=== PATIENT | female | born 1990 | race Caucasian/White ===

== ENCOUNTER 2024-12-15 10:51 | Emergency (ER) | payer BC, OTHER, SELFPAY ==
[2024-12-15 10:54] VITALS: BP 181/110
--- NOTE | 2024-12-15 11:53 | ED.GENMED ---
History of Present Illness
General
Chief Complaint: Abdominal Symptoms
Source: patient
Exam Limitations: none
Time Seen by Provider: 12/15/24 11:29
History of Present Illness
History of Present Illness:
34yo female currently 6 weeks by LMP presenting for evaluation of vomiting and diarrhea x 3 days. Last episode of diarrhea was last night and she had 2 episodes of vomiting so far today. She denies any suspicious food intake or sick
contacts. She also reports intermittent episodes of lightheadedness but denies any loss of consciousness. She is actually feeling better today. She called her OB and was advised to go to the ED for evaluation. Patient has not seen OB yet this
and is scheduled for her initial appointment in 2 weeks. She denies any pelvic/abdominal pain or vaginal bleeding. She did not have any issues with vomiting during her first . She has Zofran at home but has not used this
because she was unsure if this was safe.
Past History
Past History
ED Past Medical History: Arrthythmia (SVT)
ED Past Surgical History: Cholecystectomy and Tonsilectomy
Social History
Tobacco: Smoker
Alcohol: Occasional
Drug: None
Personal: Single
Living: with family
Employment: Employed
Family History
Family History: Negative Early CAD (No personal history or family history of aortic disease or pulmonary embolism or DVT)
Phy Exam
General Physical Exam
General Presentation: well appearing and no apparent distress
General Skin: warm and dry
General Habitus: normal
General Mental: alert
ENT Exam
ENT Exam: normocephalic
Cardiovascular Exam
Cardiovascular Exam: regular rate/rhythm
Pulmonary Exam
Pulmonary Exam: lungs clear, no respiratory distress, no rales, no crackles, no rhonchi and no wheezing
Gastrointestinal Exam
Gastrointestinal Exam: non tender, soft and non distended
Neurological Exam
Neurological Exam: alert
Kendra Coma Scale
Eye Opening: Spontaneous
Verbal Response: Oriented
Motor Response: Obeys Commands
GCS Total Score: 15
Skin Exam
Skin Exam: normal color and warm/dry
Psychiatric Exam
Psychiatric Exam: normal mood/affect
Course
Orders/Labs/Results
Orders:
Orders
12/15/24 11:52
0.9% Sodium Chloride 1000 ml [Nss] 1,000 ml IV BOLUS
12/15/24 12:17
Beta HCG Quantitative Urgent
Is this a screen?: No
Complete Blood Count/With Diff Urgent
Comprehensive Metabolic Panel Urgent
Magnesium Urgent
Abnormal Lab Results
12/15/24
12:17
WBC 17.1 H 10^3/uL
(4.8-10.8)
MCHC 32.7 L g/dL
(33.0-37.0)
Abs Immat Gran (auto) 0.1 H 10^3/uL
(0-0.05)
Absolute Neuts (auto) 13.2 H 10^3/uL
(1.4-6.5)
Absolute Monos (auto) 0.9 H 10^3/uL
(0.1-0.6)
Neutrophils % 77.5 H %
(42.2-75.2)
Lymphocytes % 15.8 L %
(20.5-51.1)
Chloride 109 H mmol/L
(98-107)
Carbon Dioxide 20 L mmol/L
(22-30)
BUN 5 L mg/dl
(7-17)
12/15/24 12:17
12/15/24 12:17
Vital Signs
Initial and Last Documented VS:
Initial Vital Signs
Temp Pulse Resp BP Pulse Ox
98.5 F 95 18 181/110 99
12/15/24 10:54 12/15/24 10:54 12/15/24 10:54 12/15/24 10:54 12/15/24 10:54
Last Documented Vital Signs
Temp Pulse Resp BP Pulse Ox
98.7 F 78 13 114/59 97
12/15/24 12:00 12/15/24 15:30 12/15/24 15:00 12/15/24 15:00 12/15/24 15:30
MDM/Problems Addressed
Differential Diagnosis Includes:
34yoF here with vomiting and diarrhea x 3 days. Currently 6 weeks . No abdominal pain or vaginal bleeding. She is hypertensive with otherwise stable vital signs. She is well-appearing no acute distress. Abdominal exam is benign.
Differential diagnosis includes but is not limited to: Gastroenteritis, morning sickness, hyperemesis gravidarum, dehydration
Initial ED plan: Check abdominal labs, magnesium, and quantitative hCG. No indication for emergent pelvic ultrasound. IV fluid bolus. She declines antiemetics.
*Pulse Oximetry
SaO2: 99
Oxygen Mode of Delivery: Room air
Patient hypoxic: no (99%)
*Critical Care Note
Total Time (30-74mins, 75-104mins- exclusive of procedures): Not Applicable
Update Note
Update Note:
Labs reveal a leukocytosis with a white count of 17 which may be reactive secondary to vomiting. Bicarb is mildly low at 20 likely secondary to hypovolemia. Electrolytes and renal function within normal limits. hCG 66k. No episodes of vomiting
throughout ED stay. No indication for hospitalization. Prescriptions given for doxylamine and pyridoxine. Supportive care discussed. Advised f/u with PCP and OBGYN. ED return precautions reviewed. She was discharged in stable condition.
ED Attending Note
-
Portions of this chart may have been created with voice recognition software.� Occasional wrong word or��sound alike� substitutions may have occurred due to the inherent limitations of voice recognition software.
Discharge Plan
Departure
Patient Disposition: Home (Routine Discharge)
Date of Disposition: 12/15/24
Time of Disposition: 14:50
Patient with high blood pressure during this ER visit?: Yes
Discharge Problem:
Vomiting and diarrhea
Instructions: Morning sickness - ED discharge instructions, Acute Diarrhea
Prescriptions:
New
pyridoxine (vitamin B6) 25 mg tablet
25 mg PO TID Qty: 30 0RF
doxylamine succinate 25 mg tablet
12.5 mg PO HS Qty: 20 0RF
No Action
promethazine-codeine 5 ML syrup
10 ml PO Q6HPRN PRN (Reason: severe cough) Qty: 60 0RF
Rx Instructions:
DO NOT DRIVE OR BATHE ALONE
ondansetron 4 MG tablet,disintegrating
4 mg PO Q8HPRN PRN (Reason: Nausea/Vomiting) Qty: 10 0RF
albuterol sulfate 1 PUFF HFA aerosol inhaler
2 puff inhalation R Q4HPRN PRN (Reason: Coughing, SOB) Qty: 1 0RF
Referrals:
Sandra Suarez, DO [Active, Gynecology]
Chantal Wolf CRNP [Family Provider]
Activity Restrictions/Additional Instructions:
Take vitamin B6 and doxylamine (Unisom) as prescribed. Drink plenty of fluids and eat a bland diet.
Please follow-up with your family doctor and OBGYN. Return to the ER with any new or worsening symptoms.
Interventions
Interventions:
*Risk Screen - Suicide Last Done: 12/15/24 10:54
*General Assessment Last Done: 12/15/24 12:18
*Neglect/Abuse Screening Last Done: 12/15/24 10:54
*ED- Fall Risk Assessment Last Done: 12/15/24 12:18
*ED COVID-19 Vaccine History Last Done: 12/15/24 12:18
*Nursing Disposition Last Done: 12/15/24 15:36
NP-Blkgbs-Dvkjxkshpf Assessment Last Done: 12/15/24 12:18
Discharge Date and Time
Discharge Date/Time: 12/15/24 15:36
Print Language: MALAY
[2024-12-15 12:18] VITALS: BMI 47.5
[2024-12-15 12:20] VITALS: BP 148/66
[2024-12-15] MEDS: NSS 1000 IV (12:28)
[2024-12-15 12:41] LABS: Hematocrit 44.0 % (37.0-47.0); Hemoglobin 14.4 g/dL (12.0-16.0); Mean Corp Hgb Conc. 32.7 g/dL (33.0-37.0); Mean Corpuscular Volume 83.2 fL (81.0-99.0); Nucleated Red Blood Cells % 0 %; Platelet Count 367 10^3/uL (130-400); Red Cell Dist. Width 13.6 % (11.5-14.5)
[2024-12-15 13:00] VITALS: BP 136/79
[2024-12-15 13:05] LABS: ALT (SGPT) 34 U/L (0-35); AST (SGOT) 29 U/L (14-36); Albumin 4.6 g/dl (3.5-5.0); Alkaline Phosphatase 99 U/L (38-126); Blood Urea Nitrogen 5 mg/dl (7-17); Calcium 9.4 mg/dl (8.4-10.2); Carbon Dioxide 20 mmol/L (22-30); Chloride 109 mmol/L (98-107); Estimated Creatinine Clearance > 125 ml/min; Glucose 92 mg/dl (70-99); Magnesium 2.2 mg/dl (1.6-2.3); Potassium 4.3 mmol/L (3.5-5.1); Sodium 138 mmol/L (135-145); Total Protein 7.7 g/dl (6.3-8.2); eGFR > 60.00
[2024-12-15 13:43] LABS: Beta HCG Quantitative 66580.00 mIU/ml
[2024-12-15 14:00] VITALS: BP 120/56
[2024-12-15 15:00] VITALS: BP 114/59
== END 2024-12-15 15:36 | disposition home or self-care (01) ==
LOC: EMR 10:51
PROVIDERS: Physician Assistant; EMERGENCY PHYSICIAN Emergency Medicine; FAMILY PHYSICIAN Nurse Practitioner Family
DX: R19.7 Diarrhea, unspecified (principal); F17.200 Nicotine dependence, unspecified, uncomplicated; Z90.49 Acquired absence of other specified parts of digestive tract
CPT/HCPCS: 99283; 80053; 83735; 84702; 85025

== ENCOUNTER → 2024-12-20 13:22 | Outpatient (REF) | payer BC, OTHER, SELFPAY ==
[2024-12-25 06:15] LABS: Chlamydia trachomatis,ThinPrep Negative (Negative); Neisseria gonorrhoeae,ThinPrep Negative (Negative); Specimen Source Cervical
[2024-12-25 09:41] LABS: HPV, High Risk Not Detected; HPV, High Risk Source Cervical
== END ==
LOC: CPAP 13:22
PROVIDERS: ATTENDING PHYSICIAN Nurse Practitioner Family
DX: Z32.01 Encounter for pregnancy test, result positive (principal)
CPT/HCPCS: 87491; 87591; 87624

== ENCOUNTER → 2025-01-11 14:56 | Outpatient (REF) | payer BC, OTHER, SELFPAY | LOC: PNTC 14:56 | PROVIDERS: ATTENDING PHYSICIAN Obstetrics & Gynecology | DX: O36.80X0 Pregnancy with inconclusive fetal viability, not applicable or unspecified (principal) | CPT/HCPCS: 76801 ==

== ENCOUNTER → 2025-02-21 13:20 | Outpatient (REF) | payer OTHER, BC, SELFPAY | LOC: PNTC 13:20 | PROVIDERS: ATTENDING PHYSICIAN Obstetrics & Gynecology | DX: O34.219 Maternal care for unspecified type scar from previous cesarean delivery (principal); P07.33 Preterm newborn, gestational age 30 completed weeks; O99.212 Obesity complicating pregnancy, second trimester; E66.01 Morbid (severe) obesity due to excess calories; Z87.59 Personal history of other complications of pregnancy, childbirth and the puerperium | CPT/HCPCS: 76805 ==